=== PATIENT | female | born 1945 | race Caucasian/White ===

== ENCOUNTER → 2016-09-28 | Outpatient (CLI) | payer OTHER | LOC: BMCIMAGING 08:35 | DX: Z12.31 Encounter for screening mammogram for malignant neoplasm of breast (principal) | CPT/HCPCS: G0202 ==

== ENCOUNTER 2017-06-02 14:45 | Emergency (ER) | payer OTHER ==
--- NOTE | 2017-06-02 15:07 | CPEKG ---
Heart Rate: 98 RR Interval: 612 P-R Interval: 152 QRSD Interval: 88 QT Interval: 336 QTC Interval: 430 P [place]: 41 QRS [place]: 69 T Wave [place]: -34 EKG Severity - ABNORMAL ECG - EKG Impression: SINUS TACHYCARDIA EKG Impression: MULTIPLE ATRIAL PREMATURE COMPLEXES EKG Impression: BORDERLINE T ABNORMALITIES, INFERIOR LEADS Electronically Signed By: Addie Arreguin 02-Jun-2017 22:16:57
--- NOTE | 2017-06-02 15:16 | EDPHY ---
H & P Time Seen by Provider: 06/02/17 15:00 HPI/ROS: CHIEF COMPLAINT: Heart palpitations, lower abdominal pain, nausea HISTORY OF PRESENT ILLNESS: The patient is a 72-year-old female with a history of IBS, diverticulitis, and thyroid disease who presents emergency department with multiple complaints. The patient states that she has been treating herself with a functional medicine doctor. She has been using a pendulum to inform her if foods were good or bad to eat. This entailed swinging a pendulum that said yes or no depending on the food. She states that she had some food last evening that may have contained soy and coconut. Per report, these foods cause her to have difficulty. This morning she awoke with mid abdominal discomfort. It has moved inferiorly. Is waxing and waning. She has nausea with no vomiting. She has intermittent diarrhea that is typical. She states she currently has hemorrhoid Mrs cause some bleeding. She has not noticed blood in her stool. She denies fevers or chills. The patient also complains of heart palpitations. These are intermittent. She has no chest pain. Minimal shortness of breath. No diaphoresis. No leg pain or swelling. REVIEW OF SYSTEMS: My complete review of systems is negative except as mentioned in the HPI. Past Medical/Surgical History: Includes IBS, diverticulitis, Maggie's thyroiditis Social history: The patient does not smoke Smoking Status: Never smoked Physical Exam: 36.6, 139/85, 94, 18, 94% on room air GENERAL: Well-appearing, in no acute distress, alert. HEENT: Eyes normal to inspection, normal pharynx, no signs of dehydration. NECK: [No thyromegaly, no lymphadenopathy, supple. RESPIRATORY: Clear to auscultation bilaterally, no rales, rhonchi or wheezing. CVS: Regular rate and rhythm, no rubs, murmurs, or gallops. ABDOMEN: Soft, diffuse mild tenderness to palpation with no rebound or guarding , nondistended, no organomegaly. BACK: Normal to inspection, no CVA tenderness. SKIN: Normal color, no rash, warm, dry. No pallor. EXTREMITIES: No pedal edema, no calf tenderness, no Homans sign or cords, no joint swelling. NEURO/PSYCH: Alert and oriented x3, normal mood and affect, normal motor sensory exam. No obvious cranial nerve deficit. Constitutional: Initial Vital Signs Temperature (C) 36.6 C 06/02/17 14:56 Heart Rate 94 06/02/17 14:56 Respiratory Rate 18 06/02/17 14:56 Blood Pressure 139/85 H 06/02/17 14:56 O2 Sat (%) 94 06/02/17 14:56 O2 Delivery Mode Room Air Allergies/Adverse Reactions: No Known Allergies Allergy (Verified 06/02/17 14:53) Home Medications: Medication Instructions Recorded Calcium Carb W/Vit D [Calcium Carb 2,000 mg PO BID 01/13/12 W/Vit D 500/200 (*)] Cholecalciferol (Vitamin D3) 2,000 unit PO DAILY 01/13/12 [Vitamin D3] Vit C/E/Zn/Coppr/Lutein/Zeaxan 1 each PO DAILY 01/13/12 [Ocuvite Lutein & Zeaxanthin Cp] Ciprofloxacin [Cipro] 500 mg PO BID #20 tab 06/02/17 Digestive Enzymes 06/02/17 metroNIDAZOLE [Flagyl 500 mg (*)] 500 mg PO BID #20 tab 06/02/17 Medical Decision Making - Diagnostics Imaging Results: Imaging Impressions Abdomen CT 06/02/17 15:34 Impression: 1. Acute diverticulitis of the mid to distal sigmoid colon for which follow-up colonoscopy is recommended when the patient's medical condition permits. 2. No drainable abscesses, pneumoperitoneum or bowel obstruction. 3. Diffuse diverticulosis. 4. 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 5. Asplenia. Findings and recommendations discussed with Emergency Department physician, Addie Arreguin at 1708 hour, 06/02/2017. Final report concurs with initial preliminary interpretation. Chest X-Ray 06/02/17 15:34 Impression: Clear lungs. No acute process. ED Course/Re-evaluation: In the emergency department I discussed possible etiologies with the patient and her . I answered all her questions. IV was placed. Laboratory studies, EKG, chest x-ray and abdominal CT were obtained. Patient did not want any medication for pain or nausea. EKG shows normal sinus rhythm, normal rate, normal axis, normal intervals. Multiple atrial premature complexes. There are no ST or T-wave abnormalities. [place] [id number]. The CBC is unremarkable. Chemistry panel and LFTs are unremarkable. 1706: I discussed the case with Dr. Upton. The patient has 10 cm diverticulitis of the sigmoid colon. There is no visible abscess. I discussed the result with the patient. Answered all her questions. Patient was given ciprofloxacin 500 mg orally and Flagyl 5 mg orally. The patient was given warnings prior to leaving. She will return with worsening symptoms. Differential Diagnosis: My differential includes but is not limited to ACS, acute VA, dysrhythmia, electrolyte abnormality, sugar abnormality, thyroid disease, small-bowel obstruction, perforation, diverticulosis, diverticulitis, diverticular abscess, pneumonia, bronchitis - Data Points Laboratory Results: Laboratory Results 06/02/17 15:15 06/02/17 15:15 06/02/17 06/02/17 06/02/17 17:40 15:15 15:15 WBC RBC Hgb Hct MCV MCH MCHC RDW Plt Count MPV Neut % (Auto) Lymph % (Auto) [place] % (Auto) Eos % (Auto) Baso % (Auto) Nucleat RBC Rel Count Absolute Neuts (auto) Absolute Lymphs (auto) Absolute Monos (auto) Absolute Eos (auto) Absolute Basos (auto) Absolute Nucleated RBC Immature Gran % Immature Gran # Sodium 140 mEq/L mEq/L (134-144) Potassium 3.7 mEq/L mEq/L (3.5-5.2) Chloride 101 mEq/L mEq/L (97-110) Carbon Dioxide 25 mEq/l mEq/l (22-31) Anion Gap 14 mEq/L mEq/L (8-16) BUN 14 mg/dL mg/dL (7-23) Creatinine 0.6 mg/dL mg/dL (0.6-1.0) Estimated GFR > 60 Glucose 111 mg/dL H mg/dL (70-100) Calcium 9.8 mg/dL mg/dL (8.5-10.4) Total Bilirubin 1.1 mg/dL mg/dL (0.1-1.4) Conjugated Bilirubin 0.1 mg/dL mg/dL (0.0-0.5) Unconjugated Bilirubin 1.0 mg/dL mg/dL (0.0-1.1) AST 20 IU/L IU/L (14-46) ALT 25 IU/L IU/L (9-52) Alkaline Phosphatase 65 IU/L IU/L (38-126) Troponin I < 0.012 ng/mL ng/mL (0.000-0.034) Total Protein 7.3 g/dL g/dL (6.3-8.2) Albumin 4.3 g/dL g/dL (3.5-5.0) Lipase 55 IU/L IU/L (23-300) Urine Color PALE YELLOW Urine Appearance CLEAR Urine pH 7.0 (5.0-7.5) Ur Specific [place] > 1.035 H (1.002-1.030) Urine Protein NEGATIVE (NEGATIVE) Urine Ketones NEGATIVE (NEGATIVE) Urine Blood NEGATIVE (NEGATIVE) Urine Nitrate NEGATIVE (NEGATIVE) Urine Bilirubin NEGATIVE (NEGATIVE) Urine Urobilinogen NEGATIVE EU EU (0.2-1.0) Ur Leukocyte Esterase NEGATIVE (NEGATIVE) Urine RBC NONE SEEN /hpf /hpf (0-3) Urine WBC NONE SEEN /hpf /hpf (0-3) Ur Epithelial Cells TRACE /lpf /lpf (NONE-1+) Urine Glucose NEGATIVE (NEGATIVE) 06/02/17 15:15 WBC 15.39 10^3/uL H 10^3/uL (3.80-9.50) RBC 4.51 10^6/uL 10^6/uL (4.18-5.33) Hgb 15.0 g/dL g/dL (12.6-16.3) Hct 41.0 % % (38.0-47.0) MCV 90.9 fL fL (81.5-99.8) MCH 33.3 pg pg (27.9-34.1) MCHC 36.6 g/dL g/dL (32.4-36.7) RDW 11.5 % % (11.5-15.2) Plt Count 372 10^3/uL 10^3/uL (150-400) MPV 9.8 fL fL (8.7-11.7) Neut % (Auto) 85.4 % H % (39.3-74.2) Lymph % (Auto) 7.9 % L % (15.0-45.0) [place] % (Auto) 5.9 % % (4.5-13.0) Eos % (Auto) 0.1 % L % (0.6-7.6) Baso % (Auto) 0.4 % % (0.3-1.7) Nucleat RBC Rel Count 0.0 % % (0.0-0.2) Absolute Neuts (auto) 13.15 10^3/uL H 10^3/uL (1.70-6.50) Absolute Lymphs (auto) 1.21 10^3/uL 10^3/uL (1.00-3.00) Absolute Monos (auto) 0.91 10^3/uL H 10^3/uL (0.30-0.80) Absolute Eos (auto) 0.01 10^3/uL L 10^3/uL (0.03-0.40) Absolute Basos (auto) 0.06 10^3/uL 10^3/uL (0.02-0.10) Absolute Nucleated RBC 0.00 10^3/uL 10^3/uL (0-0.01) Immature Gran % 0.3 % % (0.0-1.1) Immature Gran # 0.05 10^3/uL 10^3/uL (0.00-0.10) Sodium Potassium Chloride Carbon Dioxide Anion Gap BUN Creatinine Estimated GFR Glucose Calcium Total Bilirubin Conjugated Bilirubin Unconjugated Bilirubin AST ALT Alkaline Phosphatase Troponin I Total Protein Albumin Lipase Urine Color Urine Appearance Urine pH Ur Specific [place] Urine Protein Urine Ketones Urine Blood Urine Nitrate Urine Bilirubin Urine Urobilinogen Ur Leukocyte Esterase Urine RBC Urine WBC Ur Epithelial Cells Urine Glucose Medications Given: Discontinued Medications Ciprofloxacin (Cipro) 500 mg PO EDNOW ONE PRN Reason: Protocol Stop: 06/02/17 17:08 Last Admin: 06/02/17 17:21 Dose: 500 mg Sodium Chloride (Ns) 500 mls @ 0 mls/hr IV EDNOW ONE; Wide Open PRN Reason: Protocol Stop: 06/02/17 15:34 Last Admin: 06/02/17 15:39 Dose: 500 mls Metronidazole (Flagyl) 500 mg PO EDNOW ONE PRN Reason: Protocol Stop: 06/02/17 17:08 Last Admin: 06/02/17 17:21 Dose: 500 mg Departure - Departure Disposition: Home, Routine, Self-Care Clinical Impression: Diverticulitis Abdominal pain Qualifiers: Abdominal location: generalized Qualified Code(s): R10.84 - Generalized abdominal pain Condition: Good Instructions: Heart Palpitations (ED), Diverticulitis (ED) Additional Instructions: Return with increasing abdominal pain, rectal bleeding, persistent fever, inability to tolerate oral intake, or any other concerns. Take her entire course of antibiotics. You need close follow-up with her primary care physician. Referrals: Virgilio Villafuerte MD [Primary Care Provider] - 2-3 days, if not improved Prescriptions: Ciprofloxacin [Cipro] 500 mg PO BID #20 tab metroNIDAZOLE [Flagyl 500 mg (*)] 500 mg PO BID #20 tab
[2017-06-02] MEDS ORDERED: NS 500 ML IV ONE (15:33)
[2017-06-02 15:42] LABS: PLATELET COUNT 372 10^3/uL (150-400)
[2017-06-02] MEDS ORDERED: IOPAMIDOL (ISOVUE-300) 100 ML BTL ONE ×2 (16:19→16:30)
[2017-06-02] MEDS ORDERED: CIPROFLOXACIN 500 MG TAB PO ONE (17:07)
[2017-06-02] MEDS ORDERED: metroNIDAZOLE 500 MG TAB PO ONE (17:07)
[2017-06-02 17:42] VITALS: RESP 16; TEMP 98.1
[2017-06-02 18:40] VITALS: BP 132/75; PULSE 94; O2SAT 96
== END 2017-06-02 18:38 | disposition home or self-care (01) ==
DX: K57.32 Diverticulitis of large intestine without perforation or abscess without bleeding (principal)
CPT/HCPCS: 71046; 74177; 93005; 99285; Q9967

== ENCOUNTER 2017-12-24 21:15 | Emergency (ER) | payer OTHER ==
--- NOTE | 2017-12-24 21:54 | EDPHY ---
H & P Stated Complaint: abd pain, nausea, diarrhea Time Seen by Provider: 12/24/17 21:50 HPI/ROS: Chief Complaint: Nausea, diarrhea, abdominal pain HPI: 72-year-old woman presenting with several days of worsening nausea, loose mucousy stools and crampy abdominal pain. She says it feels just like her prior episodes of diverticulitis. Last was about a year ago. Has had some subjective chills. No vomiting. Stool has been very mucousy and loose, several times a day. Occasionally blood tinged but she believes this is from her hemorrhoids. Some mild low crampy abdominal pain, about a 4/10. Is also complaining of a mild headache. ROS: 10 point Review of Systems is negative except as noted in the HPI. PMH: Diverticulitis Social History: No smoking, no alcohol, no recreational drug use Family History: non-contributory Physical Exam: Gen: Awake, Alert, No Distress HEENT: Nose: no rhinorrhea Eyes: PERRLA, EOMI Mouth: Moist mucosa Neck: Supple, no JVD Chest: nontender, lungs clear to auscultation Heart: S1, S2 normal, no murmur Abd: Soft, non-tender, no guarding Back: no CVA tenderness, no midline tenderness Ext: no edema, non-tender Skin: no rash Neuro: CN II-XII intact, Sensation grossly intact, Strength 5/5 in bilateral upper and lower extremities - Personal History Current Tetanus Diphtheria and Acellular Pertussis (TDAP): Yes - Medical/Surgical History Hx Asthma: No Hx Chronic Respiratory Disease: No Hx Diabetes: No Hx Cardiac Disease: No Hx Renal Disease: No Hx Cirrhosis: No Hx Alcoholism: No Hx HIV/AIDS: No Hx Splenectomy or Spleen Trauma: No Other PMH: IBS/DIVERTICULITIS/HASHIMOTOS - Social History Smoking Status: Never smoked Constitutional: Initial Vital Signs Temperature (C) 37 C 12/24/17 21:18 Heart Rate 91 12/24/17 21:18 Respiratory Rate 20 12/24/17 21:18 Blood Pressure 131/82 H 12/24/17 21:18 O2 Sat (%) 95 12/24/17 21:18 O2 Delivery Mode Room Air Allergies/Adverse Reactions: No Known Allergies Allergy (Verified 12/24/17 21:18) Home Medications: Medication Instructions Recorded Calcium Carb W/Vit D [Calcium Carb 2,000 mg PO BID 01/13/12 W/Vit D 500/200 (*)] Cholecalciferol (Vitamin D3) 2,000 unit PO DAILY 01/13/12 [Vitamin D3] Vit C/E/Zn/Coppr/Lutein/Zeaxan 1 each PO DAILY 01/13/12 [Ocuvite Lutein & Zeaxanthin Cp] Ciprofloxacin [Cipro] 500 mg PO BID #20 tab 06/02/17 Digestive Enzymes 06/02/17 metroNIDAZOLE [Flagyl 500 mg (*)] 500 mg PO BID #20 tab 06/02/17 Amoxicillin/Clavulanate Pot 875 mg PO BID #20 tab 12/24/17 [Augmentin 875 MG TAB (*)] Medical Decision Making ED Course/Re-evaluation: 72-year-old woman complaining of symptoms of diverticulitis. Her abdomen is soft and completely benign. She has no focal tenderness whatsoever. She has some mild generalized tenderness. Certainly symptoms consistent with diverticulitis. I do not feel she needs imaging at this time. Will check her laboratory evaluations, will give her some oral Zofran, IV fluids and some Tylenol and reassess. The patient does have leukocytosis. I believe symptoms are consistent with diverticulitis. She is feeling better. She has a soft benign belly which is certainly not surgical. I think she would be an appropriate candidate for outpatient management. Will prescribe her Augmentin. She will follow up with primary care physician in 2-3 days for recheck. - Data Points Laboratory Results: Laboratory Results 12/24/17 21:35 12/24/17 21:35 12/24/17 12/24/17 12/24/17 22:15 21:35 21:35 WBC 16.28 10^3/uL H 10^3/uL (3.80-9.50) RBC 4.36 10^6/uL 10^6/uL (4.18-5.33) Hgb 14.0 g/dL g/dL (12.6-16.3) Hct 39.0 % % (38.0-47.0) MCV 89.4 fL fL (81.5-99.8) MCH 32.1 pg pg (27.9-34.1) MCHC 35.9 g/dL g/dL (32.4-36.7) RDW 12.2 % % (11.5-15.2) Plt Count 448 10^3/uL H 10^3/uL (150-400) MPV 9.9 fL fL (8.7-11.7) Neut % (Auto) 75.5 % H % (39.3-74.2) Lymph % (Auto) 15.3 % % (15.0-45.0) [place] % (Auto) 8.5 % % (4.5-13.0) Eos % (Auto) 0.2 % L % (0.6-7.6) Baso % (Auto) 0.2 % L % (0.3-1.7) Nucleat RBC Rel Count 0.0 % % (0.0-0.2) Absolute Neuts (auto) 12.29 10^3/uL H 10^3/uL (1.70-6.50) Absolute Lymphs (auto) 2.49 10^3/uL 10^3/uL (1.00-3.00) Absolute Monos (auto) 1.38 10^3/uL H 10^3/uL (0.30-0.80) Absolute Eos (auto) 0.03 10^3/uL 10^3/uL (0.03-0.40) Absolute Basos (auto) 0.04 10^3/uL 10^3/uL (0.02-0.10) Absolute Nucleated RBC 0.00 10^3/uL 10^3/uL (0-0.01) Immature Gran % 0.3 % % (0.0-1.1) Immature Gran # 0.05 10^3/uL 10^3/uL (0.00-0.10) Sodium 136 mEq/L mEq/L (135-145) Potassium 3.9 mEq/L mEq/L (3.3-5.0) Chloride 102 mEq/L mEq/L (97-110) Carbon Dioxide 21 mEq/l L mEq/l (22-31) Anion Gap 13 mEq/L mEq/L (8-16) BUN 15 mg/dL mg/dL (7-23) Creatinine 0.6 mg/dL mg/dL (0.6-1.0) Estimated GFR > 60 Glucose 106 mg/dL H mg/dL (70-100) Calcium 9.4 mg/dL mg/dL (8.5-10.4) Urine Color YELLOW Urine Appearance HAZY Urine pH 5.0 (5.0-7.5) Ur Specific [place] 1.005 (1.002-1.030) Urine Protein NEGATIVE (NEGATIVE) Urine Ketones 1+ H (NEGATIVE) Urine Blood 2+ H (NEGATIVE) Urine Nitrate NEGATIVE (NEGATIVE) Urine Bilirubin NEGATIVE (NEGATIVE) Urine Urobilinogen NEGATIVE EU EU (0.2-1.0) Ur Leukocyte Esterase NEGATIVE (NEGATIVE) Urine RBC 1-3 /hpf /hpf (0-3) Urine WBC 1-3 /hpf /hpf (0-3) Ur Epithelial Cells TRACE /lpf /lpf (NONE-1+) Urine Bacteria TRACE /hpf H /hpf (NONE SEEN) Urine Mucus TRACE /lpf /lpf (NONE-1+) Urine Glucose NEGATIVE (NEGATIVE) Medications Given: Discontinued Medications Acetaminophen (Tylenol) 1,000 mg PO EDNOW ONE Stop: 12/24/17 22:03 Last Admin: 12/24/17 22:07 Dose: 1,000 mg Amoxicillin/Clavulanate Potassium (Augmentin 875mg) 875 mg PO EDNOW ONE PRN Reason: Protocol Stop: 12/24/17 22:34 Last Admin: 12/24/17 22:37 Dose: 875 mg Sodium Chloride (Ns) 1,000 mls @ 0 mls/hr IV ONCE ONE; Wide Open PRN Reason: Protocol Stop: 12/24/17 22:03 Last Admin: 12/24/17 22:05 Dose: 1,000 mls Ondansetron HCl (Zofran Odt) 4 mg PO EDNOW ONE Stop: 12/24/17 22:03 Last Admin: 12/24/17 22:08 Dose: 4 mg Departure - Departure Disposition: Home, Routine, Self-Care Clinical Impression: Diverticulitis Condition: Good Instructions: Amoxicillin/Clavulanate Potassium (By mouth), Diverticulitis (ED) , Diverticulitis Diet (ED) Additional Instructions: Please take your full course of antibiotics. Follow up with your primary care physician in 2-3 days for re-evaluation. Return to the emergency department for increasing abdominal pain, uncontrolled diarrhea, nausea, vomiting, fevers, chills, or any other concerns. Referrals: Virgilio Villafuerte MD [Primary Care Provider] - As per Instructions Prescriptions: Amoxicillin/Clavulanate Pot [Augmentin 875 MG TAB (*)] 875 mg PO BID #20 tab
[2017-12-24] MEDS ORDERED: ONDANSETRON DISINTEGRATING 4 MG TAB PO ONE (22:02)
[2017-12-24] MEDS ORDERED: NS 1,000 ML IV ONE (22:02)
[2017-12-24] MEDS ORDERED: ACETAMINOPHEN 500 MG TAB PO ONE (22:02)
[2017-12-24 22:14] LABS: PLATELET COUNT 448 10^3/uL (150-400)
[2017-12-24] MEDS ORDERED: AMOXICILLIN/CLAVULANATE POT 875/125 MG TAB PO ONE ×2 (22:33→22:37)
[2017-12-24 22:41] VITALS: BP 124/66
== END 2017-12-24 22:48 | disposition home or self-care (01) ==
DX: K57.92 Diverticulitis of intestine, part unspecified, without perforation or abscess without bleeding (principal); E86.9 Volume depletion, unspecified

== ENCOUNTER → 2018-02-21 | Outpatient (CLI) | payer OTHER | LOC: BMCIMAGING 13:30 | PROVIDERS: ATTEND Internal Medicine | DX: Z12.31 Encounter for screening mammogram for malignant neoplasm of breast (principal) ==